=== PATIENT | male | born 1965 | race Two or more races ===

== ENCOUNTER 2024-12-24 15:23 | Emergency (ER) | payer OTHER ==
[~2024-12-24] VITALS: Ht 175.3 cm; Wt 87.5 kg
[2024-12-24] MEDS ORDERED: KETOROLAC TROMETHAMINE 60 MG VIAL IM ONE ×2 (18:00→18:30)
== END 2024-12-24 20:17 | disposition home or self-care (01) ==
LOC: ER 15:26
DX: M25.561 Pain in right knee (principal); M79.641 Pain in right hand